=== PATIENT | male | born 1985 | race African-American/Black ===

== ENCOUNTER → 2016-12-21 | Outpatient (CLI) | payer OTHER ==
--- NOTE | 2016-12-21 17:25 | DIAGNOSTIC IMAGING REPORT ---
CHEST 2 VIEWS ROUTINE CLINICAL HISTORY: COUGH COMPARISON STUDY: 04/18/2013 FINDINGS: The cardiac and mediastinal contours are normal. There is no evidence of focal pulmonary consolidation. There is no evidence of failure. No pleural effusions are visualized.[ IMPRESSION: No active disease in the chest. Electronically signed by: Andrew Marlow M.D. 12/21/2016 5:24 PM Dictated Date/Time: 12/21/2016 5:24 PM
== END | disposition home or self-care (01) ==
LOC: C.RAD 17:00
PROVIDERS: ATTEND Physician Assistant Medical
DX: R05 Cough (principal)

== ENCOUNTER 2022-07-13 07:28 | Observation (INO) ==
[2022-07-13] MEDS ORDERED: SODIUM CHLORIDE 0.9% 1000ML 500 ML IV ONE (07:55)
[2022-07-13] MEDS ORDERED: ONDANSETRON INJ 2 MG/ML 2 ML VIAL IV STA ×2 (07:55→11:47)
[2022-07-13] MEDS ORDERED: lisinopril 10 MG TAB PO STA (07:56)
--- NOTE | 2022-07-13 07:58 | Emergency Department Note ---
History of Present Illness General Chief complaint: Hypertension Stated complaint: HYPERTENSION, VOMITING BLOOD, DIZZINESS Time Seen by Provider: 07/13/22 07:44 History of Present Illness Maximum Pain Intensity: 8 This is a 36-year-old male that presents to the emergency department via private vehicle with complaints of "hypertension, vomiting blood, dizziness". The patient notes that he has been without his lisinopril plus lisinopril/HCTZ for about 2 weeks now. He feels as though his blood pressure has been increasing over the past week. He also notes a headache over the past week. No known trauma or injury. He notes that he is normally on lisinopril 10 mg daily plus 20mg lisinopril/ 25 mg HCTZ. Patient notes that he awoke this morning and felt nauseated and a bit lightheaded. He then began vomiting around 7 AM and notes a small amount of redness to this. He does provide pictures on his phone showing me the redness in the vomit. He denies any abdominal pain. No chest pain or shortness of breath. No fevers or chills. No speech trouble. No unilateral weakness. Home Medications Medication Instructions Recorded Confirmed Type lisinopril 10 mg tablet 10 mg PO DAILY 07/13/22 07/13/22 History lisinopril 20 1 tab PO DAILY 07/13/22 07/13/22 History mg-hydrochlorothiazide 25 mg tablet metformin 500 mg tablet,extended 500 mg PO DAILY 07/13/22 07/13/22 History release 24 hr Allergies Allergy/AdvReac Type Severity Reaction Status Date / Time Penicillins Allergy Intermediate hives Verified 11/02/15 05:45 Past Med/Surg History Medical History HTN (hypertension) Surgical History No pertinent past surgical history Social History Smoking Status: Never smoker Preferred Language: Nigerien Feels Safe at Home: Yes Review of Systems A total of 10 systems reviewed and were otherwise negative Physical Exam Vital Signs Vital Signs - 24 hr 07/13/22 07:35 07/13/22 07:34 07/13/22 08:09 Temperature 36.7 C Temperature Source Temporal Artery Scan Pulse Rate 69 60 Pulse Rate [Apical] 66 Pulse Rate from SpO2 Sensor Pulse Rhythm [Apical] Respiratory Rate 20 16 Respiratory Effort / Characteristics Non-Labored Spontaneous Respiratory Depth Normal Normal Respiratory Pattern Regular Blood Pressure 160/93 H Blood Pressure [Right Arm] 165/138 H Blood Pressure Mean 115 Blood Pressure Mean [Right Arm] 147 Blood Pressure Position Sitting Blood Pressure Position [Right Arm] Sitting Pulse Oximetry 99 98 Oxygen Delivery Method Room Air Room Air Sepsis Recent Fever Within 48 Hours No Sepsis New/Unexplained Change in Mental Status No Sepsis Action Taken by Nursing No Action Required 07/13/22 08:30 07/13/22 09:00 07/13/22 09:22 Temperature Temperature Source Pulse Rate 60 70 49 L Pulse Rate [Apical] Pulse Rate from SpO2 Sensor 59 L 69 51 L Pulse Rhythm [Apical] Respiratory Rate 16 21 17 Respiratory Effort / Characteristics Respiratory Depth Respiratory Pattern Blood Pressure 170/105 H 176/111 H 180/89 H Blood Pressure [Right Arm] Blood Pressure Mean 126 132 119 Blood Pressure Mean [Right Arm] Blood Pressure Position Blood Pressure Position [Right Arm] Pulse Oximetry 96 100 98 Oxygen Delivery Method Room Air Room Air Room Air Sepsis Recent Fever Within 48 Hours Sepsis New/Unexplained Change in Mental Status Sepsis Action Taken by Nursing 07/13/22 09:30 07/13/22 11:16 Temperature Temperature Source Pulse Rate 48 L Pulse Rate [Apical] 60 Pulse Rate from SpO2 Sensor Pulse Rhythm [Apical] Regular Respiratory Rate 16 18 Respiratory Effort / Characteristics Non-Labored Spontaneous Respiratory Depth Normal Respiratory Pattern Regular Blood Pressure 159/88 H Blood Pressure [Right Arm] 162/116 H Blood Pressure Mean 111 Blood Pressure Mean [Right Arm] 131 Blood Pressure Position Blood Pressure Position [Right Arm] Sitting Pulse Oximetry 96 96 Oxygen Delivery Method Room Air Room Air Sepsis Recent Fever Within 48 Hours Sepsis New/Unexplained Change in Mental Status Sepsis Action Taken by Nursing VITAL SIGNS - Vital signs and nursing notes were reviewed. Hypertensive, otherwise stable. GENERAL -36-year-old male appearing his stated age who is in no acute distress. Communicates well with provider and answers questions appropriately. SKIN - Without rashes. No meningeal or petechial rash. HEAD - NC/AT. EYES - PERRL with EOMI bilaterally. Sclera anicteric. EARS - No deformities of external structures noted on gross examination bilaterally. NOSE - Midline and without cyanosis. No epistaxis or purulent drainage noted. MOUTH/OROPHARYNX - Without perioral cyanosis. NECK - Neck with FROM. No nuchal rigidity. LUNGS - Chest wall symmetric without accessory muscle use, intercostals retractions, or central cyanosis. Normal vesicular breath sounds CTA B/L. No wheezes, rales, or rhonchi appreciated. CARDIAC - RRR with S1/S2. No murmur, rubs, or gallops appreciated. ABDOMEN - Abdominal contour normal without pulsations or visible masses. BS normoactive all four quadrants. No tenderness, palpable masses, hepatosplenomegaly, or ascites noted. EXTREMITIES - No clubbing or peripheral cyanosis. +5/5 strength noted in UE/LE bilaterally. NEUROLOGIC - Cranial nerves II through XII grossly intact. PSYCH - A&Ox3 and cooperates fully with examiner. Pt is very pleasant and interacts well with examiner. Course Administered Medications Discontinued Medications Acetaminophen (Acetaminophen 325 Mg Tab) 650 mg PO NOW STA Stop: 07/13/22 11:01 Last Admin: 07/13/22 11:13 Dose: 650 mg Documented By: KLAUDIA Al Hydrox/Mg Hydrox/Simethicone (Gi Cocktail Ed Use) 1 dose PO ONE ONE Stop: 07/13/22 11:15 Last Admin: 07/13/22 11:24 Dose: 1 dose Documented By: KLAUDIA Hydralazine HCl (Hydralazine Hcl 20 Mg/Ml Vial) 5 mg IV NOW ONE Stop: 07/13/22 12:51 Last Admin: 07/13/22 13:02 Dose: 5 mg Documented By: CASSIE Sodium Chloride (Nss 1000ml) 500 mls @ 500 mls/hr IV .Q1H ONE Stop: 07/13/22 08:54 Last Infusion: 07/13/22 09:22 Dose: 0 mls/hr Documented By: Admin: 07/13/22 08:03 Dose: 500 mls/hr Documented By: CASSIE Famotidine (Pepcid 20mg Iv Push) 20 mg in 5 mls @ 2.5 mls/min IV NOW STA Stop: 07/13/22 11:15 Last Admin: 07/13/22 11:24 Dose: 2.5 mls/min Documented By: KLAUDIA Lisinopril (Lisinopril 10 Mg Tab) 10 mg PO NOW STA Stop: 07/13/22 07:57 Last Admin: 07/13/22 08:34 Dose: 10 mg Documented By: CASSIE Ondansetron HCl (Ondansetron Inj 2 Mg/Ml 2 Ml Vial) 4 mg IV NOW STA Stop: 07/13/22 07:56 Last Admin: 07/13/22 08:03 Dose: 4 mg Documented By: CASSIE Ondansetron HCl (Ondansetron Inj 2 Mg/Ml 2 Ml Vial) 4 mg IV NOW STA Stop: 07/13/22 11:48 Last Admin: 07/13/22 12:00 Dose: 4 mg Documented By: CASSIE Potassium Chloride (Potassium Chloride Crtab 20 Meq Tabcr) 20 meq PO NOW STA Stop: 07/13/22 09:55 Last Admin: 07/13/22 09:58 Dose: 20 meq Documented By: CASSIE Medical Decision Making Laboratory Data 07/13/22 07:43 07/13/22 07:43 Lab Results 07/13/22 07/13/22 07/13/22 Range/Units 07:43 07:43 07:43 WBC 7.11 (4.8-10.8) K/ul RBC 4.91 (4.70-6.10) M/uL Hgb 15.1 (14.0-18.0) g/dl Hct 43.8 (42.0-52.0) % MCV 89.2 (80.0-100.0) fL MCH 30.8 (25.0-34.0) pg MCHC 34.5 (32.0-36.0) g/dL RDW Std Deviation 45.0 (36.4-46.3) fL RDW Coeff of Adria 13.7 (11.5-14.5) % Plt Count 307 (130-400) K/uL MPV 10.1 (9.4-12.4) fL Immature Gran % (Auto) 0.3 % Neut % (Auto) 51.1 % Lymph % (Auto) 37.6 % Lucas % (Auto) 7.2 % Eos % (Auto) 3.1 % Baso % (Auto) 0.7 % Neut # (Auto) 3.64 (1.40-6.50) K/uL Lymph # (Auto) 2.67 (1.2-3.4) K/uL Lucas # (Auto) 0.51 (0.11-0.59) K/uL Eos # (Auto) 0.22 (0-0.50) K/uL Baso # (Auto) 0.05 (0-0.2) K/uL Immature Gran # (Auto) 0.02 (0.01-0.20) K/uL PT 10.8 (9.0-12.0) Seconds INR 1.0 (0.9-1.1) APTT 26.2 (21.0-31.0) Seconds PTT Ratio 0.9 Sodium 138 (136-145) mmol/L Potassium 3.1 L (3.5-5.1) mmol/L Chloride 104 (98-107) mmol/L Carbon Dioxide 27 (21-32) mmol/L Anion Gap 7 (3-11) BUN 13 (6-23) mg/dl Creatinine 0.84 (0.6-1.4) mg/dl Est Cr Clr Drug Dosing 178.5 ml/min Est GFR ( Amer) 131.5 ml/min Est GFR (Non-Af Amer) 113.4 ml/min BUN/Creatinine Ratio 15.5 (10-20) Glucose 137 H (70-99(Fasting)) mg/dl Calcium 8.7 (8.6-10.3) mg/dl Magnesium 2.0 (1.7-2.4) mg/dl Total Bilirubin 0.8 (0.2-1.0) mg/dl AST 22 (13-39) U/L ALT 22 (7-52) U/L Alkaline Phosphatase 81 (34-104) U/L Troponin I High Sens 5.4 (0-20) pg/ml Total Protein 7.2 (6.0-8.3) gm/dl Albumin 4.0 (3.4-5.0) gm/dl Globulin 3.2 (2.5-4.0) gm/dl Albumin/Globulin Ratio 1.3 (0.9-2) Lipase 34 (11-82) U/L TSH (0.300-4.500) uIu/ml Urine Color Urine Appearance (Clear) Urine pH (4.5-7.5) Ur Specific [place] (1.000-1.030) Urine Protein (Negative) Urine Glucose (UA) (Negative) Urine Ketones (Negative) Urine Blood (Negative) Urine Nitrite (Negative) Urine Bilirubin (Negative) Urine Urobilinogen (Negative) Ur Leukocyte Esterase (Negative) SARS-CoV-2, RNA, NAAT (NEGATIVE) 07/13/22 07/13/22 07/13/22 Range/Units 07:43 11:19 12:04 WBC (4.8-10.8) K/ul RBC (4.70-6.10) M/uL Hgb (14.0-18.0) g/dl Hct (42.0-52.0) % MCV (80.0-100.0) fL MCH (25.0-34.0) pg MCHC (32.0-36.0) g/dL RDW Std Deviation (36.4-46.3) fL RDW Coeff of Adria (11.5-14.5) % Plt Count (130-400) K/uL MPV (9.4-12.4) fL Immature Gran % (Auto) % Neut % (Auto) % Lymph % (Auto) % Lucas % (Auto) % Eos % (Auto) % Baso % (Auto) % Neut # (Auto) (1.40-6.50) K/uL Lymph # (Auto) (1.2-3.4) K/uL Lucas # (Auto) (0.11-0.59) K/uL Eos # (Auto) (0-0.50) K/uL Baso # (Auto) (0-0.2) K/uL Immature Gran # (Auto) (0.01-0.20) K/uL PT (9.0-12.0) Seconds INR (0.9-1.1) APTT (21.0-31.0) Seconds PTT Ratio Sodium (136-145) mmol/L Potassium (3.5-5.1) mmol/L Chloride (98-107) mmol/L Carbon Dioxide (21-32) mmol/L Anion Gap (3-11) BUN (6-23) mg/dl Creatinine (0.6-1.4) mg/dl Est Cr Clr Drug Dosing ml/min Est GFR ( Amer) ml/min Est GFR (Non-Af Amer) ml/min BUN/Creatinine Ratio (10-20) Glucose (70-99(Fasting)) mg/dl Calcium (8.6-10.3) mg/dl Magnesium (1.7-2.4) mg/dl Total Bilirubin (0.2-1.0) mg/dl AST (13-39) U/L ALT (7-52) U/L Alkaline Phosphatase (34-104) U/L Troponin I High Sens (0-20) pg/ml Total Protein (6.0-8.3) gm/dl Albumin (3.4-5.0) gm/dl Globulin (2.5-4.0) gm/dl Albumin/Globulin Ratio (0.9-2) Lipase (11-82) U/L TSH 1.339 (0.300-4.500) uIu/ml Urine Color Yellow Urine Appearance Clear (Clear) Urine pH 7.5 (4.5-7.5) Ur Specific [place] 1.012 (1.000-1.030) Urine Protein Negative (Negative) Urine Glucose (UA) Negative (Negative) Urine Ketones Negative (Negative) Urine Blood Negative (Negative) Urine Nitrite Negative (Negative) Urine Bilirubin Negative (Negative) Urine Urobilinogen Negative (Negative) Ur Leukocyte Esterase Negative (Negative) SARS-CoV-2, RNA, NAAT NEGATIVE (NEGATIVE) Imaging Data Radiologist's Impression: Chest X-Ray 07/13/22 07:55 XR chest 1V portable HISTORY: 36 years-old Male headaches, emesis headache with nausea and vomiting COMPARISON: Chest radiograph 12/21/2016 TECHNIQUE: AP view of the chest FINDINGS: Cardiac mediastinal and hilar silhouettes are within normal limits. No pneumothorax, pleural effusion, airspace consolidation or pulmonary edema. Degenerative changes of the shoulders and spine. Mild upper thoracic levoscoliosis. IMPRESSION: No acute process. ACT 112: Negative or not required by law. The above report was generated using voice recognition software. It may contain grammatical, syntax or spelling errors. Electronically signed by: Ronal Linares M.D. 07/13/2022 8:[address] 07/13/22 07:55 CT OF THE HEAD WITHOUT CONTRAST CLINICAL HISTORY: Hypertension, emesis, headache COMPARISON STUDY: No previous studies for comparison. CT DOSE: 625.80 mGy.cm TECHNIQUE: Helical axial images of the head were obtained without IV contrast. Automated exposure control was utilized for the study. A dose lowering technique was utilized adhering to the principles of ALARA. FINDINGS: No acute intracranial hemorrhage, midline shift or mass effect is present. The ventricular system is unremarkable. The basal cisterns are patent. No extra-axial collections are present. There are no findings to suggest acute dural sinus thrombosis or acute territorial infarct. No significant calvarial abnormalities are present. Visualized portions of the sinuses and mastoid air cells are clear. IMPRESSION: No acute intracranial findings. ACT 112: Negative or not required by law. Electronically signed by: Lyle Christian M.D. 07/13/2022 8:42 AM MDM Narrative Patient was seen and evaluated as above in room C09. Review was performed of nursing notes and vital signs. I did review pertinent previous visits and patient history. After obtaining a thorough history and physical examination the above work up was performed. Patient presents to us today for assessment of a headache, vomiting with some red/blood in the vomit and lightheadedness. Patient clinically well-appearing and nontoxic. He is hypertensive on arrival. No focal deficits. No speech trouble or appreciated weakness. No signs of infection. No signs of trauma or injury. He has a benign abdominal exam. No tenderness. He denies any anticoagulant use. He ran out of his antihypertensive agents about 2 weeks ago. He does provide some pictures of the vomit today and there does appear to be a little bit of blood within the vomit but not copious amounts. Options of care were discussed with the patient. IV access was established. Labs were drawn. Patient was hydrated with normal saline for fluid loss today from vomiting. He was given IV Zofran for nausea. I also provided him a dose of lisinopril which he would be due for this morning. Labs reveal no leukocy tosis or concerning anemia. Mild hypokalemia 3.1. No evidence of kidney or liver failure. Troponin negative. Glucose 137. Patient is to have this glucose rechecked in the outpatient setting. EKG was also performed and reveals normal sinus rhythm at a rate of 71 bpm. QTc 436. QRS 90. Poor R wave progression. No ST elevation. CT scan of the head was negative. Chest x-ray negative for acute process. In obtaining further history from the patient he has been taking ibuprofen this week for the headache. I suspect that patient's presentation here is multifactorial. I suspect that he has been without his antihypertensive agents and therefore causing some of his symptoms. He has been managing his headache with ibuprofen and the ibuprofen is likely irritated his stomach which led to the vomiting this morning. I do not suspect concerning ulceration at this time or GI hemorrhage. No deficits on examination or evidence of CVA/TIA. Initially had plan for discharge to follow-up in the outpatient setting as he was feeling better but then began with return of nausea and then vomited. With his continued nausea and now vomiting despite medicines in the setting of some persistent lightheadedness I do believe that further evaluation and management in the inpatient setting is warranted. Case discussed with the hospitalist service. Please refer to further documentation regarding his stay. Protonix and Zofran was sent to his pharmacy however canceled as he will now be admitted. GCS: 15 In the evaluation and treatment of this patient the following differential diagnoses were entertained: Meningitis, encephalitis, CVA, TIA, concussion, acute intracranial hemorrhage, acute abdomen, gastritis, esophagitis, among others. Impression & Plan Headache, Nausea & vomiting, Lightheadedness, HTN (hypertension) Discharge Plan Visit Data Chief Complaint: Hypertension Stated Complaint: HYPERTENSION, VOMITING BLOOD, DIZZINESS ED Provider: Ponce Lewis ED Midlevel Provider: Martinez Benitez Discharge Problem: Headache, Nausea & vomiting, Lightheadedness, HTN (hypertension) Patient Disposition: Admitted As Inpatient Condition: Good Forms Stand Alone Forms: My [facility], Virtual Emergency Department, Important Visit Information Prescriptions Prescriptions: No Action lisinopril 10 mg tablet 10 mg PO DAILY Patient Comments: Per pt's partner, he doesn't take his medications like he should. lisinopril-hydrochlorothiazide 20-25 mg tablet 1 tab PO DAILY Rx Instructions: Per pt's partner, he doesn't take his medications like he should. metformin 500 mg tablet extended release 24 hr 500 mg PO DAILY Patient Comments: Per pt's partner, he doesn't take his medications like he should. Referrals Referrals: Yahaira Jean-Baptiste MD [Primary Care Provider] -
[2022-07-13 08:10] LABS: Basophils # (auto) 0.05 K/uL (0-0.2); Basophils % (auto) 0.7 %; Eosinophils # (auto) 0.22 K/uL (0-0.50); Eosinophils % (auto) 3.1 %; Hematocrit (blood only) 43.8 % (42.0-52.0); Hemoglobin 15.1 g/dl (14.0-18.0); Immature Granulocytes # (auto) 0.02 K/uL (0.01-0.20); Immature Granulocytes % (auto) 0.3 %; Lymphocytes # (auto) 2.67 K/uL (1.2-3.4); Lymphocytes % (auto) 37.6 %; Mean Corpuscular Hemoglobin 30.8 pg (25.0-34.0); Mean Corpuscular Hgb Conc 34.5 g/dL (32.0-36.0); Mean Corpuscular Volume 89.2 fL (80.0-100.0); Mean Platelet Volume 10.1 fL (9.4-12.4); Monocytes # (auto) 0.51 K/uL (0.11-0.59); Monocytes % (auto) 7.2 %; Neutrophils # (auto) 3.64 K/uL (1.40-6.50); Neutrophils % (auto) 51.1 %; Platelet Count 307 K/uL (130-400); RDW Coefficient of Variation 13.7 % (11.5-14.5); Red Blood Count 4.91 M/uL (4.70-6.10); White Blood Count 7.11 K/ul (4.8-10.8)
--- NOTE | 2022-07-13 08:27 | XRay Report ---
XR chest 1V portable HISTORY: 36 years-old Male headaches, emesis headache with nausea and vomiting COMPARISON: Chest radiograph 12/21/2016 TECHNIQUE: AP view of the chest FINDINGS: Cardiac mediastinal and hilar silhouettes are within normal limits. No pneumothorax, pleural effusion , airspace consolidation or pulmonary edema. Degenerative changes of the shoulders and spine. Mild up per thoracic levoscoliosis. IMPRESSION: No acute process. ACT 112: Negative or not required by law. The above report was generated using voice recognition software. It may contain grammatical, syntax o r spelling errors. Electronically signed by: Ronal Linares M.D. 07/13/2022 8:26 AM
[2022-07-13 08:30] LABS: Albumin Globulin Ratio 1.3 (0.9-2); BUN Creatinine Ratio 15.5 (10-20); Bilirubin,Total 0.8 mg/dl (0.2-1.0); Calcium 8.7 mg/dl (8.6-10.3); Creatinine Clr Calc Pharmacy 178.5 ml/min; Est GFR (African American) 131.5 ml/min; Est GFR (Non-African American) 113.4 ml/min; Globulin 3.2 gm/dl (2.5-4.0); Potassium 3.1 mmol/L (3.5-5.1); Total Protein 7.2 gm/dl (6.0-8.3)
[2022-07-13 08:37] LABS: Troponin I High Sensitivity 5.4 pg/ml (0-20)
[2022-07-13 08:43] LABS: Partial Thromboplastin Ratio 0.9; Partial Thromboplastin Time 26.2 Seconds (21.0-31.0); Prothrombin Time 10.8 Seconds (9.0-12.0)
--- NOTE | 2022-07-13 08:43 | CT Scan Report ---
CT OF THE HEAD WITHOUT CONTRAST CLINICAL HISTORY: Hypertension, emesis, headache COMPARISON STUDY: No previous studies for comparison. CT DOSE: 625.80 mGy.cm TECHNIQUE: Helical axial images of the head were obtained without IV contrast. Automated exposure con trol was utilized for the study. A dose lowering technique was utilized adhering to the principles o f ALARA. FINDINGS: No acute intracranial hemorrhage, midline shift or mass effect is present. The ventricular system is unremarkable. The basal cisterns are patent. No extra-axial collections are present. There are no findings to suggest acute dural sinus thrombosis or acute territorial infarct. No significant calvarial abnormalities are present. Visualized portions of the sinuses and mastoid air cells are nisreen ar. IMPRESSION: No acute intracranial findings. ACT 112: Negative or not required by law. Electronically signed by: Lyle Christian M.D. 07/13/2022 8:42 AM
[2022-07-13] MEDS ORDERED: POTASSIUM CHLORIDE CRTAB 20 MEQ TABCR PO STA ×2 (09:54→13:07)
[2022-07-13] MEDS ORDERED: ACETAMINOPHEN 325 MG TAB PO STA (11:00)
[2022-07-13] MEDS ORDERED: FAMOTIDINE 20MG IV PUSH 20 MG/5 ML SYR IV STA (11:14)
[2022-07-13] MEDS ORDERED: GI COCKTAIL ED USE PO ONE (11:14)
[2022-07-13 11:34] LABS: Appearance Urine Clear (Clear); Bilirubin Urine Negative (Negative); Blood Urine Negative (Negative); Color Urine Yellow; Glucose Urine UA Negative (Negative); Ketones Urine Negative (Negative); Leukocyte Esterase Urine Negative (Negative); Nitrite Urine Negative (Negative); Protein Urine Negative (Negative); Specific Gravity Urine 1.012 (1.000-1.030); Urobilinogen Urine Negative (Negative); pH Urine 7.5 (4.5-7.5)
[2022-07-13] MEDS ORDERED: hydrALAZINE HCL 20 MG/ML VIAL IV ONE ×2 (12:50→15:03)
--- NOTE | 2022-07-13 13:19 | History & Physical Report ---
Date of Service July 13, 2022 Assessment & Plan (1) Hypertensive urgency: Plan: Admit to tele Patient presenting from home with reports of headache, nausea, vomiting, hematemesis. Patient has been off of his blood pressure medication for the past 2 weeks due to prescription running out. Highest BP in ED 176/111 Received lisinopril 10 mg in ED however had vomiting after. Will utilize IV hydralazine to control BP acutely and resume home BP medicine as BP was previously controlled on this regimen --lisinopril/HCTZ 20 mg / 25 mg daily and additionally lisinopril 10 mg daily (2) Gastritis: (3) Hematemesis: Plan: Likely steroid-induced gastritis Hgb stable at 15.1 -- continue to trend Start PPI twice daily Outpatient follow-up with GI vs inpatient consult if hematemesis persists or drop in hgb (4) Prediabetes: Plan: Hgb A1c 6.2 09/2021 Patient self stopped metformin several months ago NovoLog per protocol while hospitalized Update A1c with a.m. labs DVT PROPHYLAXIS SCDs due to hematemesis/gastritis Patient seen in collaboration with Dr. Donaldson. I spent a total of 75 minutes coordinating, documenting, and providing care for this patient excluding time spent in the performance of separately billed services. This included personally reviewing all current laboratories and imaging studies, medication reconciliation, outpatient chart review, and discussion with specialists. History of Present Illness Chief Complaint: Headache, nausea, vomiting Primary Care Provider: Yahaira Jean-Baptiste MD 36-year-old male with PMH HTN, prediabetes, and other problems listed below who presents to the ED for evaluation of headache, nausea, vomiting. History obtained from the patient and review of outpatient PCP records. Patient reports he ran out of his blood pressure medication about 2 weeks ago. He reports that 1 week ago he developed a mild frontal headache. This morning around 3 AM, patient woke up and headache was significantly worse. He also felt very lightheaded with standing. No syncopal event. Patient also reports associated nausea and vomiting. Reports bright red blood in emesis and epigastric di scomfort. Patient reports he has been taking ibuprofen 400 mg daily for the past week due to headache. Patient denies bright red blood per rectum or dark tarry stools. Does report some mild epigastric discomfort. Denies chest pain and shortness of breath. No other recent illnesses, fevers, chills. Denies urinary symptoms. Presenting BP 165/138. Labs show mild hypokalemia, K+ 3.1, otherwise unremarkable. Patient was given IVF, potassium replacement, lisinopril 10 mg, IV Zofran, IV famotidine, GI cocktail. Patient was initially feeling improved however vomiting recurred. Patient to be admitted under observation for further management. Allergies Allergy/AdvReac Type Severity Reaction Status Date / Time Penicillins Allergy Intermediate hives Verified 11/02/15 05:45 Home Medications Medication Instructions Recorded Confirmed Type lisinopril 10 mg tablet 10 mg PO DAILY 07/13/22 07/13/22 History lisinopril 20 1 tab PO DAILY 07/13/22 07/13/22 History mg-hydrochlorothiazide 25 mg tablet Past Med/Surg History Medical History HTN (hypertension) Prediabetes Surgical History History of cholecystectomy Family History (Updated 07/13/22 @ 16:04 by NIKITA Hernandez) Other Hypertension Social History Smoking Status: Never smoker Second Hand Exposure: No; Do You Dip or Chew Tobacco: No; Tobacco Cessation Education Requested by Patient: No Hx Alcohol Use: No Hx Substance Use: No Preferred Language: Gambian Communication Ability: Effective Hand Turner Required: No Beliefs That Will Affect Care: None Current Living Situation: Significant Other Other Information That Helps Us Care for You: No Feels Safe at Home: Yes Safety Concerns: Feels Safe At This Time Assistive Devices: None Review of Systems Review of Systems: ROS per HPI, all other systems reviewed and negative Physical Exam Constitutional: WD/WN, vitals as above Eyes: PERRL, conjunctivae normal, anicteric sclerae ENMT: external ear and nose normal, oropharynx normal Respiratory: normal respiratory effort, lungs clear to auscultation Cardiovascular: Rate/Rhythm: regular rate and regular rhythm Vessels: normal peripheral pulses Extremities: no edema Gastrointestinal (Abdomen): Inspection/Auscultation: normal bowel sounds; abdomen not distended Percussion/Palpation: + abdomen tender (mild, epigastric) and abdomen soft; no hepatosplenomegaly Musculoskeletal: no cyanosis or clubbing, extremities motor strength 5/5 Skin: no rashes, warm and dry Neurologic: PERRL, EOMI, accommodation nl, no face palsy, no dysarthria Psychiatric: A+Ox3, euthymic affect Results & Data Results & Data Vital Signs (Past 12 Hours) Vital Signs Temp Pulse Pulse Resp BP BP Pulse Ox 07/13/22 11:16 60 18 162/116 H 96 07/13/22 09:30 48 L 16 159/88 H 96 07/13/22 09:22 49 L 17 180/89 H 98 07/13/22 09:00 70 21 176/111 H 100 07/13/22 08:30 60 16 170/105 H 96 07/13/22 08:09 60 07/13/22 07:34 66 16 165/138 H 98 07/13/22 07:35 36.7 C 69 20 160/93 H 99 O2 Del Method 07/13/22 11:16 Room Air 07/13/22 09:30 Room Air 07/13/22 09:22 Room Air 07/13/22 09:00 Room Air 07/13/22 08:30 Room Air 07/13/22 08:09 07/13/22 07:34 Room Air 07/13/22 07:35 Room Air Laboratory Results Short CBC 07/13/22 Range/Units 07:43 WBC 7.11 (4.8-10.8) K/ul Hgb 15.1 (14.0-18.0) g/dl Hct 43.8 (42.0-52.0) % Plt Count 307 (130-400) K/uL BMP 07/13/22 07:43 Sodium 138 Potassium 3.1 L Chloride 104 Carbon Dioxide 27 BUN 13 Creatinine 0.84 Glucose 137 H Calcium 8.7 Liver Function 07/13/22 Range/Units 07:43 Total Bilirubin 0.8 (0.2-1.0) mg/dl AST 22 (13-39) U/L ALT 22 (7-52) U/L Alkaline Phosphatase 81 (34-104) U/L Albumin 4.0 (3.4-5.0) gm/dl Urine 07/13/22 Range/Units 11:19 Urine Color Yellow Urine Appearance Clear (Clear) Urine pH 7.5 (4.5-7.5) Ur Specific [place] 1.012 (1.000-1.030) Urine Protein Negative (Negative) Urine Glucose (UA) Negative (Negative) Diagnostic Findings Chest X-Ray 07/13/22 07:55 XR chest 1V portable HISTORY: 36 years-old Male headaches, emesis headache with nausea and vomiting COMPARISON: Chest radiograph 12/21/2016 TECHNIQUE: AP view of the chest FINDINGS: Cardiac mediastinal and hilar silhouettes are within normal limits. No pneumothorax, pleural effusion, airspace consolidation or pulmonary edema. D egenerative changes of the shoulders and spine. Mild upper thoracic levoscoliosis. IMPRESSION: No acute process. ACT 112: Negative or not required by law. The above report was generated using voice recognition software. It may contain grammatical, syntax or spelling errors. Electronically signed by: Ronal Linares M.D. 07/13/2022 8:[address] 07/13/22 07:55 CT OF THE HEAD WITHOUT CONTRAST CLINICAL HISTORY: Hypertension, emesis, headache COMPARISON STUDY: No previous studies for comparison. CT DOSE: 625.80 mGy.cm TECHNIQUE: Helical axial images of the head were obtained without IV contrast. Automated exposure control was utilized for the study. A dose lowering technique was utilized adhering to the principles of ALARA. FINDINGS: No acute intracranial hemorrhage, midline shift or mass effect is present. The ventricular system is unremarkable. The basal cisterns are patent. No extra-axial collections are present. There are no findings to suggest acute dural sinus thrombosis or acute territorial infarct. No significant calvarial abnormalities are present. Visualized portions of the sinuses and mastoid air cells are clear. IMPRESSION: No acute intracranial findings. ACT 112: Negative or not required by law. Electronically signed by: Lyle Christian M.D. 07/13/2022 8:42 AM Code Status & VTE Plan VTE Prophylaxis Plan VTE Prophylaxis will be ordered: Yes Supervising Physician Co-Signing Physician Notes I have seen and examined the patient and have discussed the case with the provider above. I agree with the assessment and plan as stated. Patient is a 36-year-old man presenting with hypertensive urgency including headache and vomiting. He reports taking in high doses of Motrin recently and has been out of his lisinopril for at least 2 weeks. He reports being compliant with a low-salt diet. Although he received oral lisinopril x2 today he vomited the pill up. He has been receiving parenteral antihypertensive therapy with hydralazine and labetalol. Ongoing vomiting is present. Antiemetic and IV Tylenol have been administered and will be repeating blood pressure which is currently 182/82, after patient is more calm and symptom-free. When I spoke with him after his initial hydralazine, he was reporting feeling well and asked for a regular diet which was ordered. On physical exam he is morbidly obese but in no acute distress. Heart and lung exam is normal and abdomen is soft nontender nondistended. There are no abdominal or carotid bruits present. He has no gross focal neurologic deficits. 5 out of 5 strength throughout. Work-up includes a normal CBC and BMP aside from potassium 3.1 in the setting of vomiting, and there is no evidence of coagulopathy. Lipase is 34, thyroid function is normal. UA is negative. COVID is negative. Head CT was performed because of the headache and revealed no acute intracranial findings. Chest x- ray revealed no acute process. EKG reveals normal sinus rhythm with minimal voltage criteria for LVH. Has sensitive troponin is negative at 5.4. 1. Hypertensive urgency secondary to noncompliance with lisinopril outpatient 2. Excessive Motrin use secondary to headache 3. Vomiting 4. Morbid obesity Continued efforts for parenteral antihypertensive administration have been unsuccessful in getting his blood pressure down to date. He received 2 doses of 5 mg IV hydralazine which were likely not enough medication. A repeat blood pressure check revealed 160/78 and the patient reported a headache. He then received 1 more dose of hydralazine 10 mg IV and repeat blood pressure was 170/96 with a pulse of 76. A dose of labetalol was then given along with p.o. lisinopril. The patient subsequently vomited this up and became agitated now with a blood pressure of 182/82. Phenergan IV and acetaminophen IV were given and we are continuing to monitor his blood pressure with a goal of less than 160 systolic tonight. Oral lisinopril has been ordered once he is able to tolerate. There is no evidence of ACS and no chest pain. Continue to monitor on telemetry overnight. DO Mendoza.
[2022-07-13] MEDS ORDERED: GLUCOSE 10 TAB/TUBE PO PRN (14:33)
[2022-07-13] MEDS ORDERED: GLUCOSE 40% GEL 15 GM TUBE PO PRN (14:33)
[2022-07-13] MEDS ORDERED: GLUCAGON FOR INJ 1 MG VIAL SQ PRN (14:33)
[2022-07-13] MEDS ORDERED: DEXTROSE 50% 50 ML SYRINGE IV PRN (14:33)
[2022-07-13] MEDS ORDERED: CARBOHYDRATES FOR HYPOGLYCEMIA PO PRN (14:33)
[2022-07-13] MEDS ORDERED: ONDANSETRON INJ 2 MG/ML 2 ML VIAL IV PRN (14:33)
[2022-07-13] MEDS ORDERED: hydrALAZINE HCL 20 MG/ML VIAL IV STA (16:25)
[2022-07-13] MEDS ORDERED: lisinopril 10 MG TAB PO ONE (17:11)
[2022-07-13] MEDS: INSULIN ASPART PER UNIT CHARGE SC SCH ×2 (17:15→21:12)
[2022-07-13] MEDS ORDERED: LABETALOL HCL IV 5 MG/ML 20ML IV STA (17:23)
[2022-07-13] MEDS ORDERED: PROMETHAZINE HCL 12.5 MG in SODIUM CHLORIDE 0.9% 50 ML IV STA (18:07)
[2022-07-13] MEDS ORDERED: ACETAMINOPHEN 1,000 MG/100 ML VIAL IV STA (18:07)
[2022-07-13] MEDS: PANTOprazole 40 MG TAB PO SCH (21:23)
[2022-07-13 21:50] LABS: Hematocrit (blood only) 43.5 % (42.0-52.0)
--- NOTE | 2022-07-14 00:32 | Electrocardiogram Report ---
Test Reason : Blood Pressure : / mmHG Vent. Rate : 071 BPM Atrial Rate : 071 BPM P-R Int : 198 ms QRS Dur : 090 ms QT Int : 402 ms P-R-T Axes : 026 -13 001 degrees QTc Int : 436 ms Normal sinus rhythm Minimal voltage criteria for LVH, may be normal variant Nonspecific T wave abnormality Abnormal ECG No previous ECGs available Confirmed by Gino Sanchez ([id number]) on 07/14/2022 12:31:35 AM Referred By: REFERRED SELF Confirmed By:Gino Sanchez
[2022-07-14 06:30] LABS: Hematocrit (blood only) 41.6 % (42.0-52.0); Hemoglobin 14.1 g/dl (14.0-18.0); Mean Corpuscular Hemoglobin 30.8 pg (25.0-34.0); Mean Corpuscular Hgb Conc 33.9 g/dL (32.0-36.0); Mean Corpuscular Volume 90.8 fL (80.0-100.0); Mean Platelet Volume 9.9 fL (9.4-12.4); Platelet Count 296 K/uL (130-400); RDW Coefficient of Variation 14.1 % (11.5-14.5); Red Blood Count 4.58 M/uL (4.70-6.10); White Blood Count 6.38 K/ul (4.8-10.8)
[2022-07-14 06:38] LABS: BUN Creatinine Ratio 12.3 (10-20); Calcium 8.9 mg/dl (8.6-10.3); Creatinine Clr Calc Pharmacy 180.8 ml/min; Est GFR (African American) 133.5 ml/min; Est GFR (Non-African American) 115.1 ml/min; Potassium 3.4 mmol/L (3.5-5.1)
[2022-07-14] MEDS: INSULIN ASPART PER UNIT CHARGE SC SCH ×4 (08:07→20:25)
[2022-07-14] MEDS: PANTOprazole 40 MG TAB PO SCH ×2 (08:10→21:17)
[2022-07-14] MEDS: LISINOPRIL/HCTZ 20/25MG 1 TAB PO SCH (08:10)
[2022-07-14 08:12] LABS: Estimated Average Glucose 126 mg/dl
[2022-07-14] MEDS: ACETAMINOPHEN 325 MG TAB PO PRN ×2 (08:13→17:08)
[2022-07-14] MEDS ORDERED: lisinopril 10 MG TAB PO SCH (09:00)
--- NOTE | 2022-07-14 11:23 | Hospitalist Progress Note ---
Date of Service July 14, 2022 Assessment & Plan (1) Hypertensive urgency: Plan: Known to be hypertensive for the last 2 years with strong family history of high blood pressure Obesity is being another component of the blood pressure-strongly advised to decrease weight Patient presenting from home with reports of headache, nausea, vomiting, hematemesis. Patient has been off of his blood pressure medication for the past 2 weeks due to prescription running out. Highest BP in ED 176/111 Received lisinopril 10 mg in ED however had vomiting after. Will utilize IV hydralazine to control BP acutely and resume home BP medicine as BP was previously controlled on this regimen --lisinopril/HCTZ 20 mg / 25 mg daily and additionally lisinopril 10 mg daily Clinically much better today still has minimal headache without any other neurological symptoms Nausea and vomiting are better We will continue with his home medications of lisinopril 10 mg and lisinopril/HCTZ 20/25 We will observe for the next day or 2 and likely discharge tomorrow or day after (2) Gastritis: (3) Hematemesis: Plan: Likely steroid-induced gastritis Hgb stable at 15.1 -- continue to trend Start PPI twice daily Outpatient follow-up with GI vs inpatient consult if hematemesis persists or drop in hgb No more hematemesis and hemoglobin remained stable at 14.1 (4) Prediabetes: Plan: Hgb A1c 6.2 09/2021 Patient self stopped metformin several months ago NovoLog per protocol while hospitalized Update A1c with a.m. labs-hemoglobin A1c is 6.0 DVT PROPHYLAXIS SCDs due to hematemesis/gastritis Increase ambulation CODE STATUS Full Admission and Anticipated Discharge Date Admission Date: July 13, 2022 Subjective 07/14/2022 The patient was seen and examined in telemetry unit He has been taking it blood pressure medications for more than 2 weeks and was admitted with hypertensive urgency with headache, nausea and vomiting He has been feeling much better since admission Denies any chest pain, shortness of breath or palpitation and the headache seems to be improving Review of Systems Review of Systems: All systems reviewed and are unremarkable except as noted below Physical Exam Physical Exam: Lying in bed comfortably Constitutional: well developed, well nourished and + morbidly obese; not ill appearing Eyes: PERRL, conjunctivae normal, anicteric sclerae ENMT: external ear and nose normal, oropharynx normal Neck: trachea midline, no thyromegaly Respiratory: no respiratory distress Auscultation: lungs clear to auscultation bilaterally Cardiovascular: Rate/Rhythm: regular rate and regular rhythm; not tachycardic Heart Sounds: normal S1 and normal S2; no murmur Extremities: + edema (Trace edema bilaterally) Gastrointestinal (Abdomen): Inspection/Auscultation: normal bowel sounds; abdomen not distended Percussion/Palpation: abdomen soft; abdomen nontender Musculoskeletal: No acute arthritis involving any joint Neurologic: normal touch/pain/proprioception and moves all extremities; no focal motor deficits Psychiatric: A+Ox3, euthymic affect Lymphatic: no cervical or axillary lymphadenopathy Results & Data Results & Data Vital Signs (Past 12 Hours) Vital Signs Temp Pulse Pulse Resp BP Pulse Ox O2 Del Method 07/14/22 08:00 70 07/14/22 07:36 36.6 C 63 20 157/94 H 97 Room Air 07/14/22 03:49 36.8 C 66 18 114/67 99 Room Air 07/13/22 23:21 36.7 C 59 L 18 134/79 98 Room Air Laboratory Results Short CBC 07/13/22 07/14/22 Range/Units 21:15 05:54 WBC 6.38 (4.8-10.8) K/ul Hgb 15.0 14.1 (14.0-18.0) g/dl Hct 43.5 41.6 L (42.0-52.0) % Plt Count 296 (130-400) K/uL BMP 07/14/22 05:54 Sodium 138 Potassium 3.4 L Chloride 105 Carbon Dioxide 29 BUN 10 Creatinine 0.81 Glucose 102 H Calcium 8.9 Urine 07/13/22 Range/Units 11:19 Urine Color Yellow Urine Appearance Clear (Clear) Urine pH 7.5 (4.5-7.5) Ur Specific [place] 1.012 (1.000-1.030) Urine Protein Negative (Negative) Urine Glucose (UA) Negative (Negative) Medications Administered Current Inpatient Medications Acetaminophen (Acetaminophen 325 Mg Tab) 650 mg PO Q4H PRN PRN Reason: Pain or Fever Stop: 08/12/22 14:32 Last Admin: 07/14/22 08:13 Dose: 650 mg Dextrose (Dextrose 50% 50 Ml Syringe) 25 - 50 ml IV UD PRN; Protocol PRN Reason: Hypoglycemia Protocol Stop: 08/12/22 14:32 Glucagon (Glucagon For Inj 1 Mg Vial) 1 mg SQ UD PRN; Protocol PRN Reason: Hypoglycemia Protocol Stop: 08/12/22 14:32 Glucose (Glucose 10 Tab/Tube) 4 - 8 tab PO UD PRN; Protocol PRN Reason: Hypoglycemia Treatment Stop: 08/12/22 14:32 Glucose (Glucose 40% Gel 15 Gm Tube) 15 - 30 gm PO UD PRN; Protocol PRN Reason: Hypoglycemia Protocol Stop: 08/12/22 14:32 Lisinopril/HCTZ (Lisinopril/Hctz 20/25mg 1 Tab) 1 tab PO DAILY MARCOS Stop: 08/13/22 08:59 Last Admin: 07/14/22 08:10 Dose: 1 tab Insulin Aspart (Insulin Aspart Per Unit Charge) 0 units SC ACHS MARCOS Stop: 08/12/22 16:29 Last Admin: 07/14/22 08:07 Dose: Not Given Lisinopril (Lisinopril 10 Mg Tab) 10 mg PO DAILY MARCOS Stop: 08/13/22 08:59 Last Admin: 07/14/22 08:11 Dose: 10 mg Miscellaneous (Carbohydrates For Hypoglycemia ) 15 - 30 gm PO UD PRN PRN Reason: Hypoglycemia Protocol Stop: 08/12/22 14:32 Ondansetron HCl (Ondansetron Inj 2 Mg/Ml 2 Ml Vial) 4 mg IV Q6H PRN PRN Reason: Nausea Stop: 08/12/22 14:32 Last Admin: 07/13/22 17:49 Dose: 4 mg Pantoprazole Sodium (Pantoprazole 40 Mg Tab) 40 mg PO BID MARCOS Stop: 08/12/22 20:59 Last Admin: 07/14/22 08:10 Dose: 40 mg
[2022-07-15 07:18] LABS: BUN Creatinine Ratio 15.8 (10-20); Calcium 9.1 mg/dl (8.6-10.3); Creatinine Clr Calc Pharmacy 189.9 ml/min; Est GFR (Non-African American) 118.2 ml/min; Potassium 3.4 mmol/L (3.5-5.1)
[2022-07-15] MEDS ORDERED: POTASSIUM CHLORIDE CRTAB 20 MEQ TABCR PO STA (07:56)
[2022-07-15] MEDS: PANTOprazole 40 MG TAB PO SCH (08:25)
[2022-07-15] MEDS: LISINOPRIL/HCTZ 20/25MG 1 TAB PO SCH (08:25)
[2022-07-15] MEDS: INSULIN ASPART PER UNIT CHARGE SC SCH (08:32)
[2022-07-15] MEDS ORDERED: lisinopril 20 MG TAB PO SCH (09:00)
--- NOTE | 2022-07-15 10:55 | Hospitalist Progress Note ---
Date of Service July 15, 2022 Assessment & Plan (1) Hypertensive urgency: Plan: Known to be hypertensive for the last 2 years with strong family history of high blood pressure Obesity is being another component of the blood pressure-strongly advised to decrease weight Patient presenting from home with reports of headache, nausea, vomiting, hematemesis. Patient has been off of his blood pressure medication for the past 2 weeks due to prescription running out. Highest BP in ED 176/111 Received lisinopril 10 mg in ED however had vomiting after. Will utilize IV hydralazine to control BP acutely and resume home BP medicine as BP was previously controlled on this regimen --lisinopril/HCTZ 20 mg / 25 mg daily and additionally lisinopril 10 mg daily Clinically much better today still has minimal headache without any other neurological symptoms Nausea and vomiting are better We will continue with his home medications of lisinopril 10 mg and lisinopril/HCTZ 20/25 We will observe for the next day or 2 and likely discharge tomorrow or day after His lisinopril has been increased to 20 mg once a day Potassium was supplemented and increasing dose of lisinopril will be helpful to maintain his potassium He will be seeing his primary care physician within 7 days as a follow-up of (2) Gastritis: Plan: No more nausea and or vomiting (3) Hematemesis: Plan: Likely steroid-induced gastritis Hgb stable at 15.1 -- continue to trend Start PPI twice daily Outpatient follow-up with GI vs inpatient consult if hematemesis persists or drop in hgb No more hematemesis and hemoglobin remained stable at 14.1 Hemoglobin remains stable at 14.1 as of 07/14/2022 without any evidence of melena and/or hematemesis (4) Prediabetes: Plan: Hgb A1c 6.2 09/2021 Patient self stopped metformin several months ago NovoLog per protocol while hospitalized Update A1c with a.m. labs-hemoglobin A1c is 6.0 He was strongly advised to lose weight DVT PROPHYLAXIS SCDs due to hematemesis/gastritis Increase ambulation CODE STATUS Full Admission and Anticipated Discharge Date Admission Date: July 13, 2022 Subjective 07/14/2022 The patient was seen and examined in telemetry unit He has been taking it blood pressure medications for more than 2 weeks and was admitted with hypertensive urgency with headache, nausea and vomiting He has been feeling much better since admission Denies any chest pain, shortness of breath or palpitation and the headache seems to be improving 07/15/2022 The patient was seen and examined in telemetry unit His blood pressure remains elevated at 150/99 He does not have any more symptoms and he definitely wants to go home today He did not have any more nausea no vomiting and no black stool Review of Systems Review of Systems: All systems reviewed and are unremarkable except as noted below Physical Exam Physical Exam: Lying in bed comfortably Constitutional: well developed, well nourished and + morbidly obese; not ill appearing Eyes: PERRL, conjunctivae normal, anicteric sclerae ENMT: external ear and nose normal, oropharynx normal Neck: trachea midline, no thyromegaly Respiratory: no respiratory distress Auscultation: lungs clear to auscultation bilaterally Cardiovascular: Rate/Rhythm: regular rate and regular rhythm; not tachycardic Heart Sounds: normal S1 and normal S2; no murmur Extremities: + edema (Trace edema bilaterally) Gastrointestinal (Abdomen): Inspection/Auscultation: normal bowel sounds; abdomen not distended Percussion/Palpation: abdomen soft; abdomen nontender Musculoskeletal: No acute arthritis involving any of the joint and no headache Neurologic: normal touch/pain/proprioception and moves all extremities; no focal motor deficits Psychiatric: A+Ox3, euthymic affect Lymphatic: no cervical or axillary lymphadenopathy Results & Data Results & Data Vital Signs (Past 12 Hours) Vital Signs Temp Pulse Pulse Resp BP Pulse Ox O2 Del Method 07/15/22 07:40 58 L 07/15/22 07:15 36.7 C 56 L 20 150/99 H 98 Room Air 07/15/22 03:42 36.5 C 60 17 161/95 H 98 Room Air 07/14/22 23:48 36.8 C 56 L 17 152/88 H 98 Room Air 07/14/22 23:01 58 L Laboratory Results [facility] 07/15/22 06:05 Sodium 138 Potassium 3.4 L Chloride 105 Carbon Dioxide 30 BUN 12 Creatinine 0.76 Glucose 100 H Calcium 9.1 Medications Administered Current Inpatient Medications Acetaminophen (Acetaminophen 325 Mg Tab) 650 mg PO Q4H PRN PRN Reason: Pain or Fever Stop: 08/12/22 14:32 Last Admin: 07/14/22 17:08 Dose: 650 mg Dextrose (Dextrose 50% 50 Ml Syringe) 25 - 50 ml IV UD PRN; Protocol PRN Reason: Hypoglycemia Protocol Stop: 08/12/22 14:32 Glucagon (Glucagon For Inj 1 Mg Vial) 1 mg SQ UD PRN; Protocol PRN Reason: Hypoglycemia Protocol Stop: 08/12/22 14:32 Glucose (Glucose 10 Tab/Tube) 4 - 8 tab PO UD PRN; Protocol PRN Reason: Hypoglycemia Treatment Stop: 08/12/22 14:32 Glucose (Glucose 40% Gel 15 Gm Tube) 15 - 30 gm PO UD PRN; Protocol PRN Reason: Hypoglycemia Protocol Stop: 08/12/22 14:32 Lisinopril/HCTZ (Lisinopril/Hctz 20/25mg 1 Tab) 1 tab PO DAILY MARCOS Stop: 08/13/22 08:59 Last Admin: 07/15/22 08:25 Dose: 1 tab Insulin Aspart (Insulin Aspart Per Unit Charge) 0 units SC ACHS MARCOS Stop: 08/12/22 16:29 Last Admin: 07/15/22 08:32 Dose: 1 units Lisinopril (Lisinopril 20 Mg Tab) 20 mg PO DAILY MARCOS Stop: 08/14/22 08:59 Last Admin: 07/15/22 08:34 Dose: 20 mg Miscellaneous (Carbohydrates For Hypoglycemia ) 15 - 30 gm PO UD PRN PRN Reason: Hypoglycemia Protocol Stop: 08/12/22 14:32 Ondansetron HCl (Ondansetron Inj 2 Mg/Ml 2 Ml Vial) 4 mg IV Q6H PRN PRN Reason: Nausea Stop: 08/12/22 14:32 Last Admin: 07/13/22 17:49 Dose: 4 mg Pantoprazole Sodium (Pantoprazole 40 Mg Tab) 40 mg PO BID MARCOS Stop: 08/12/22 20:59 Last Admin: 07/15/22 08:25 Dose: 40 mg
--- NOTE | 2022-07-15 16:37 | Discharge Summary ---
Date of Service July 15, 2022 Admission HPI Per Admitting Provider 36-year-old male with PMH HTN, prediabetes, and other problems listed below who presents to the ED for evaluation of headache, nausea, vomiting. History obtained from the patient and review of outpatient PCP records. Patient reports he ran out of his blood pressure medication about 2 weeks ago. He reports that 1 week ago he developed a mild frontal headache. This morning around 3 AM, patient woke up and headache was significantly worse. He also felt very lightheaded with standing. No syncopal event. Patient also reports associated nausea and vomiting. Reports bright red blood in emesis and epigastric disco mfort. Patient reports he has been taking ibuprofen 400 mg daily for the past week due to headache. Patient denies bright red blood per rectum or dark tarry stools. Does report some mild epigastric discomfort. Denies chest pain and shortness of breath. No other recent illnesses, fevers, chills. Denies urinary symptoms. Presenting BP 165/138. Labs show mild hypokalemia, K+ 3.1, otherwise unremarkable. Patient was given IVF, potassium replacement, lisinopril 10 mg, IV Zofran, IV famotidine, GI cocktail. Patient was initially feeling improved however vomiting recurred. Patient to be admitted under observation for further management. Admission Exam Per Admitting Provider Constitutional: WD/WN, vitals as above Eyes: PERRL, conjunctivae normal, anicteric sclerae ENMT: external ear and nose normal, oropharynx normal Respiratory: normal respiratory effort, lungs clear to auscultation Cardiovascular: Rate/Rhythm: regular rate and regular rhythm Vessels: normal peripheral pulses Extremities: no edema Gastrointestinal (Abdomen): Inspection/Auscultation: normal bowel sounds; abdomen not distended Percussion/Palpation: + abdomen tender (mild, epigastric) and abdomen soft; no hepatosplenomegaly Musculoskeletal: no cyanosis or clubbing, extremities motor strength 5/5 Skin: no rashes, warm and dry Neurologic: PERRL, EOMI, accommodation nl, no face palsy, no dysarthria Psychiatric: A+Ox3, euthymic affect Principal Diagnosis Hypertensive urgency, gastritis with 1 episode of hematemesis-resolved without any further issues and no melena Discharge Exam Lying in bed comfortably Constitutional well developed, well nourished and + morbidly obese; not ill appearing Eyes PERRL, conjunctivae normal, anicteric sclerae ENMT external ear and nose normal, oropharynx normal Neck trachea midline, no thyromegaly Respiratory no respiratory distress Auscultation: lungs clear to auscultation bilaterally Cardiovascular Rate/Rhythm: regular rate and regular rhythm; not tachycardic Heart Sounds: normal S1 and normal S2; no murmur Extremities: + edema (Trace edema bilaterally) Gastrointestinal (Abdomen) Inspection/Auscultation: normal bowel sounds; abdomen not distended Percussion/Palpation: abdomen soft; abdomen nontender Neurologic normal touch/pain/proprioception and moves all extremities; no focal motor deficits Psychiatric A+Ox3, euthymic affect Lymphatic no cervical or axillary lymphadenopathy Discharge Data Allergies Allergy/AdvReac Type Severity Reaction Status Date / Time Penicillins Allergy Intermediate hives Verified 11/02/15 05:45 Consultations 07/13/22 11:57 ED Decision to Admit Stat Ordered Studies 07/13/22 07:55 CT head/brain wo con Stat Hospital Course (1) Hypertensive urgency: Known to be hypertensive for the last 2 years with strong family history of high blood pressure Obesity is being another component of the blood pressure-strongly advised to decrease weight Patient presenting from home with reports of headache, nausea, vomiting, hematemesis. Patient has been off of his blood pressure medication for the past 2 weeks due to prescription running out. Highest BP in ED 176/111 Received lisinopril 10 mg in ED however had vomiting after. Will utilize IV hydralazine to control BP acutely and resume home BP medicine as BP was previously controlled on this regimen --lisinopril/HCTZ 20 mg / 25 mg daily and additionally lisinopril 10 mg daily Clinically much better today still has minimal headache without any other neurological symptoms Nausea and vomiting are better We will continue with his home medications of lisinopril 10 mg and lisinopril/HCTZ 20/25 We will observe for the next day or 2 and likely discharge tomorrow or day after His lisinopril has been increased to 20 mg once a day Potassium was supplemented and increasing dose of lisinopril will be helpful to maintain his potassium He will be seeing his primary care physician within 7 days as a follow-up of (2) Gastritis: No more nausea and or vomiting (3) Hematemesis: Likely steroid-induced gastritis Hgb stable at 15.1 -- continue to trend Start PPI twice daily Outpatient follow-up with GI vs inpatient consult if hematemesis persists or drop in hgb No more hematemesis and hemoglobin remained stable at 14.1 Hemoglobin remains stable at 14.1 as of 07/14/2022 without any evidence of melena and/or hematemesis (4) Prediabetes: Hgb A1c 6.2 09/2021 Patient self stopped metformin several months ago NovoLog per protocol while hospitalized Update A1c with a.m. labs-hemoglobin A1c is 6.0 He was strongly advised to lose weight DVT PROPHYLAXIS SCDs due to hematemesis/gastritis Increase ambulation CODE STATUS Full Total Time Total Time Spent Total Time Spent (In Minutes): 35 minutes Discharge Plan Discharge Items Patient Disposition: Home - Self-Care Reason For Visit: HYPERTENSION, VOMITING BLOOD, DIZZINESS Discharge Diagnosis: Hypertensive urgency, gastritis with 1 episode of hematemesis-resolved without any further issues and no melena Condition on Discharge: Good Activity: Resume your previous activity Non-emergency contact: Primary Care Provider Call non-emergency contact if: you have any medication questions and your symptoms worsen Follow-up/Referrals: Yahaira Jean-Baptiste MD [Primary Care Provider] - (Your doctor's office will call you with an appointment within 7 days) Diet: Carb Consistent or DM2 and Low Sodium (2gm) Addtl Attending Provider Instructions: Please take your medications as advised Your lisinopril dose has been increased to 20 mg from 10 mg Please give appointment with your healthcare provider and have a kidney function checked during your follow-up visit Take your medications as advised Pending Studies at Discharge: No Stand-Alone Forms: My [facility] [employer], Work/School Release, Smoking Cessation Medications and DC Order Prescriptions: New lisinopril 20 mg Tablet 20 mg PO DAILY 30 Days Qty: 30 0RF pantoprazole 40 mg Tablet,Delayed Release (Dr/Ec) 40 mg PO DAILY 30 Days Qty: 30 0RF Continued lisinopril-hydrochlorothiazide 20-25 mg tablet 1 tab PO DAILY Rx Instructions: Per pt's partner, he doesn't take his medications like he should. Discontinued lisinopril 10 mg tablet 10 mg PO DAILY Patient Comments: Per pt's partner, he doesn't take his medications like he should. Discharge Orders: Discharge Order (Routine); Ordered 07/15/22 Ordered By: Yumiko Yanez/Other Patient Handouts: Prediabetes, 5 Steps for Eating Healthier Admission Data Admit Date/Time: 07/13/22 12:02 Attending Provider: Yumiko Scott Admit Provider: Juhi Donaldson Primary Care Provider: Yahaira Jean-Baptiste Other Providers: Juhi Donaldson ; Yumiko Scott ; Theodore Ambriz Other Interventions: Discharge Summary Assessment (RN) Last Done: 07/15/22 11:08
== END 2022-07-15 11:32 | disposition home or self-care (01) ==
LOC: ED 07:28 → 2S 07:28 → SUATTDRO 12:02 → 2S 13:06